=== PATIENT | female | born 1965 | race Caucasian/White ===

== ENCOUNTER 2016-08-05 17:45 | Observation (INO) | payer SELFPAY ==
[2016-08-05] MEDS ORDERED: IPRATROPIUM/ALBUTEROL 3 ML VIAL NEB ONE (18:03)
[2016-08-05] MEDS ORDERED: methylPREDNISolone SODIUM SUC 125 MG/2 ML VIAL IV ONE (18:09)
[2016-08-05] MEDS ORDERED: MONTELUKAST SODIUM 10 MG TAB PO ONE (18:10)
[2016-08-05] MEDS ORDERED: SODIUM CHL 0.9% 50ML VIAL 3 ML, ALBUTEROL SULFATE NEBS 15 MG NEB ONE ×2 (18:14)
[2016-08-05] MEDS ORDERED: IPRATROPIUM BROMIDE NEBS 0.5 MG/2.5 ML VIAL NEB ONE ×2 (18:15→18:17)
[2016-08-05] MEDS ORDERED: ALBUTEROL SULFATE 2.5 MG/3 ML VIAL NEB ONE (18:16)
--- NOTE | 2016-08-05 18:20 | ED.PDOC ---
History of Present Illness - General Source: patient, family Exam Limitations: no limitations - History of Present Illness Initial Comments: the patient is a 51-year-old female presenting to the emergency room secondary to progressive shortness of breath over the last 4 days. 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 She is having some chest discomfort with deep breathing now and is feeling a little bit of fatigue. The patient has wheezes and coarse rales that are heard across the emergency room. She does have a very long-standing history of significant asthma and does have frequent flares. She takes several medications at home and has done 3 breathing treatments today. She has felt dizzy a few times. She denies fevers. Earlier in the week she had a mild sore throat and runny nose. She does have a mild productive sputum. Timing/Duration: 1 week Severity: severe Improving Factors: nothing Worsening Factors: movement Associated Symptoms: cough, malaise, shortness of breath <Vlad Vega - Last Filed: 08/05/16 18:45> <Noemi Kat - Last Filed: 08/05/16 21:36> - General Chief Complaint: Respiratory Problem Stated Complaint: Shortness of breathe Time Seen by Provider: 08/05/16 18:08 - History of Present Illness Allergies/Adverse Reactions: Allergies NO KNOWN ALLERGY Allergy (Verified 02/19/14 11:11) Home Medications: Ambulatory Orders Albuterol Inhaler [Proventil Hfa Inhaler] 1 puff INH PRN PRN 02/19/14 Cyclobenzaprine HCl [Flexeril] 10 mg PO Q8HRS #15 tab 02/19/14 Fluticasone/Salmeterol 250/50 [Advair Diskus] 1 puff INH BID 02/19/14 Tramadol HCl [Ultram] 50 mg PO Q8HRS PRN #15 tab 02/19/14 Review of Systems - Review of Systems Constitutional: States: malaise EENTM: States: nose congestion, throat pain - earlier in the week Respiratory: States: cough, short of breath, wheezing Cardiology: States: no symptoms reported, chest pain - mainly with cough Gastrointestinal/Abdominal: States: no symptoms reported Genitourinary: States: no symptoms reported Musculoskeletal: States: no symptoms reported Skin: States: no symptoms reported Neurological: States: no symptoms reported Endocrine: States: no symptoms reported All other Systems: No Change from Baseline <Vlad Vega Dina - Last Filed: 08/05/16 18:45> Past Medical History (General) - Patient Medical History Hx Seizures: No Hx Stroke: No Hx Asthma: Yes - last episode a couple of weeks ago Hx of COPD: No Hx Congestive Heart Failure: No Hx Hypertension: No Hx Diabetes: No Hx MRSA: No - Vaccination History Hx Tetanus, Diphtheria Vaccination: Yes Hx Influenza Vaccination: No Hx Pneumococcal Vaccination: No Immunizations Up to Date: Yes - Social History Hx Tobacco Use: No - Female History Patient is a Female of Child Bearing Age (10 -59 yrs old): No Hx Last Menstrual Period: 01/15/14 Patient : No <Laura Vegadinorah Arroyo - Last Filed: 08/05/16 18:45> Family Medical History - Family History Father Living Status: Hx Family Cancer: Yes - colon <Laura Vegadinorah Arroyo - Last Filed: 08/05/16 18:45> Physical Exam - Physical Exam General Appearance: Alert, Anxious, Obvious distress Eye Exam: bilateral normal Ears, Nose, Throat: hearing grossly normal, nasal congestion Neck: full range of motion, supple Respiratory: chest non-tender, respiratory distress - moderate, decreased breath sounds - severe, rales - diffuse, rhonchi - diffuse, wheezing - diffuse Cardiovascular/Chest: normal peripheral pulses, no edema, tachycardia Peripheral Pulses: radial,right: 2+, radial,left: 2+, dorsalis pedis,right: 2+, dorsalis pedis,left: 2+ Gastrointestinal/Abdominal: soft Rectal Exam: deferred Back Exam: normal inspection, no CVA tenderness, no vertebral tenderness Extremity: normal range of motion, normal inspection, no pedal edema, normal capillary refill Neurologic: alert, oriented x 3 - she is anxious Skin Exam: normal color Comments: Vital Signs - 24 hr 08/05/16 18:06 Temperature 98.7 F Pulse Rate [ 84 Left Radial] Respiratory 22 Rate Blood Pressure 157/92 [Left Arm] O2 Sat by Pulse 97 Oximetry <Laura Vegadinorah Arroyo - Last Filed: 08/05/16 18:45> Progress - Progress Progress: 08/05/16 21:32 Patient has had a severe exacerbation previously which almost resulted in intubation. Therefore, because of her long-standing history of asthma, the severe exacerbations she has had in the past, and her inability to catch her breath, she will be admitted. - Results/Orders Results/Orders: 08/05/16 18:15 EKG STAT 08/05/16 20:16 Incentive Spirometry Routine 08/05/16 20:26 Peak Flow .ONCE Laboratory Results WBC 10.4 K/mm3 (4.8-10.8) 08/05/16 18: RBC 4.60 M/mm3 (4.20-5.40) 08/05/16 18:17 Hgb 13.9 gm/dL (12.0-16.0) 08/05/16 18:17 Hct 42.0 % (36.0-47.0) 08/05/16 18: MCV 91.2 fl (81.0-99.0) 08/05/16 18:17 MCH 30.2 pg (27.0-31.0) 08/05/16 18: MCHC 33.1 g/dL (33.0-37.0) 08/05/16 18:17 RDW 13.8 % (11.5-14.5) 08/05/16 18:17 Plt Count 344 K/mm3 (130-400) 08/05/16 18:17 MPV 6.6 fl (7.40-10.4) L 08/05/16 18:17 Absolute Neuts (auto) 8.70 K/uL (1.8-6.8) H 08/05/16 18:17 Absolute Lymphs (auto) 1.20 K/uL (1.0-3.4) 08/05/16 18:17 Absolute Monos (auto) 0.40 K/uL (0.2-0.8) 08/05/16 18:17 Absolute Eos (auto) 0.00 K/uL (0.0-0.4) 08/05/16 18:17 Absolute Basos (auto) 0.00 K/uL (0.0-0.1) 08/05/16 18:17 Neutrophils % 84.0 % (42.0-78.0) H 08/05/16 18:17 Lymphocytes % 12.0 % (20.0-50.0) L 08/05/16 18:17 Monocytes % 3.5 % (2.0-9.0) 08/05/16 18:17 Eosinophils % 0.1 % (1.0-5.0) L 08/05/16 18:17 Basophils % 0.4 % (0.0-2.0) 08/05/16 18:17 D-Dimer, Quantitative < 230 ng/mL (0-230) 08/05/16 18:17 Sodium 140 mmol/L (135-145) 08/05/16 18:17 Potassium 4.1 mmol/L (3.6-5.0) 08/05/16 18:17 Chloride 105 mmol/L (101-111) 08/05/16 18:17 Carbon Dioxide 25 mmol/L (21-31) 08/05/16 18:17 Anion Gap 14.1 (12-18) 08/05/16 18:17 BUN 18 mg/dL (7-18) 08/05/16 18:17 Creatinine 0.97 mg/dL (0.6-1.3) 08/05/16 18:17 BUN/Creatinine Ratio 18.6 (10-20) 08/05/16 18:17 Random Glucose 268 mg/dL (70-105) H 08/05/16 18:17 Serum Osmolality 290.7 mOsm/L (275-295) 08/05/16 18:17 Calcium 9.1 mg/dL (8.4-10.2) 08/05/16 18:17 Magnesium 2.1 mg/dL (1.8-2.5) 08/05/16 18:17 Total Bilirubin 0.5 mg/dL (0.2-1.0) 08/05/16 18:17 AST 40 IU/L (10-42) 08/05/16 18:17 ALT 27 IU/L (10-60) 08/05/16 18:17 Alkaline Phosphatase 59 IU/L (42-121) 08/05/16 18:17 Creatine Kinase 69 IU/L (26-140) 08/05/16 18:17 CK-MB (CK-2) 2.5 ng/mL (0.0-4.4) 08/05/16 18:17 CK-MB (CK-2) % Not Reportable 08/05/16 18:17 Troponin I < 0.02 ng/mL (0.01-0.05) 08/05/16 18:17 B-Natriuretic Peptide 22.6 pg/ml (0-100) 08/05/16 18:17 Serum Total Protein 7.3 gm/dL (6.4-8.2) 08/05/16 18:17 Albumin 3.7 g/dl (3.2-5.5) 08/05/16 18:17 Globulin 3.6 gm/dL (2.3-3.5) H 08/05/16 18:17 Albumin/Globulin Ratio 1.0 (1.1-1.9) L 08/05/16 18:17 08/05/16 08/05/16 08/05/16 18:06 19:29 19:38 Temperature 98.7 F Pulse Rate 90 115 H Pulse Rate [ 84 Left Radial] Respiratory 22 25 H 26 H Rate Blood Pressure 157/92 [Left Arm] O2 Sat by Pulse 97 96 100 Oximetry 08/05/16 08/05/16 20:10 20:23 Temperature Pulse Rate Pulse Rate [ 96 H 107 H Left Radial] Respiratory 20 22 Rate Blood Pressure 149/84 131/71 [Left Arm] O2 Sat by Pulse 96 97 Oximetry - EKG/XRAY/CT XRAY: chest Xray Comments: No acute process <Noemi Kat - Last Filed: 08/05/16 21:36> Departure <Vlad Vega - Last Filed: 08/05/16 18:45> - Departure Time of Disposition: 21:36 <Noemi Kat - Last Filed: 08/05/16 21:36> - Departure Clinical Impression: Asthma with exacerbation Qualifiers: Asthma severity: unspecified severity Qualifier Code: (J45.901) Unspecified asthma with (acute) exacerbation Disposition: Admit Patient Condition: Good Referrals: Kalia Sosa MD [Primary Care Provider] - 1-2 Weeks Home Medications: Ambulatory Orders Albuterol Inhaler [Proventil Hfa Inhaler] 1 puff INH PRN PRN 02/19/14 Cyclobenzaprine HCl [Flexeril] 10 mg PO Q8HRS #15 tab 02/19/14 Fluticasone/Salmeterol 250/50 [Advair Diskus] 1 puff INH BID 02/19/14 Tramadol HCl [Ultram] 50 mg PO Q8HRS PRN #15 tab 02/19/14 Decision To Admit - Decistion To Admit Decision to Admit Reason: Medical Nature Decision to Admit Date: 08/05/16 Decision to Admit Time: 21:00 <Noemi Kat - Last Filed: 08/05/16 21:36> Addendum entered and electronically signed by Vlad Vega MD 08/05/16 18:46 : Departure - Departure Disposition: Discharge to Home or Self Care Departure Forms: ED Discharge - Pt. Copy, Patient Portal Self Enrollment Home Medications: Ambulatory Orders Albuterol Inhaler [Proventil Hfa Inhaler] 1 puff INH PRN PRN 02/19/14 Cyclobenzaprine HCl [Flexeril] 10 mg PO Q8HRS #15 tab 02/19/14 Fluticasone/Salmeterol 250/50 [Advair Diskus] 1 puff INH BID 02/19/14 Tramadol HCl [Ultram] 50 mg PO Q8HRS PRN #15 tab 02/19/14 ED Addendum - ED Addendum Addendum: EKG shows normal sinus rhythm without acute ST segment changes concerning for ischemia. Normal axis. Mildly slow R-wave progression in anterior leads. The patient is being signed off to Dr. Kat for continuation of care.
--- NOTE | 2016-08-05 18:55 | RAD ---
EXAM: Chest,2 Views CLINICAL INDICATION: 51-year-old female with shortness of breath. TECHNIQUE: Two-view, PA and lateral projections of the chest were obtained. COMPARISON: None. FINDINGS: Unremarkable cardiac and mediastinal silhouette. Heart size is normal. Lungs are clear without focal opacity, pneumothorax or pleural effusions. The visualized bones are within normal limits. IMPRESSION: No acute cardiopulmonary abnormalities. Electronically signed by: Deisi Olson MD 08/05/2016 6:54 PM FLOOR TECH
[2016-08-05] MEDS ORDERED: DEXAMETHASONE INJ 2 MG, SODIUM CHLORIDE 0.9% NEB 3 ML NEB ONE ×2 (21:16)
[2016-08-05] MEDS ORDERED: LEVALBUTEROL NEBS 1.25 MG/3 ML VIAL NEB ONE (21:17)
[2016-08-05] MEDS ORDERED: MAGNESIUM SULFATE INJ 2 GM in SODIUM CHLORIDE 0.9% 100ML 100 ML IVPB ONE (21:30)
[2016-08-05] MEDS ORDERED: DEXAMETHASONE INJ 4 MG/ML VIAL ONE (21:35)
[2016-08-05] MEDS ORDERED: SODIUM CHLORIDE 0.9% NEB 3 ML VIAL ONE (21:35)
[2016-08-05] MEDS ORDERED: ACETAMINOPHEN 325 MG TAB PO PRN (22:42)
[2016-08-05] MEDS ORDERED: MAGNESIUM HYDROXIDE 30 ML UD PO PRN (22:42)
[2016-08-05] MEDS ORDERED: SODIUM CHLORIDE 0.9% (FLUSH) 10 ML SYG IV PRN (22:42)
[2016-08-05] MEDS ORDERED: LEVALBUTEROL NEBS 1.25 MG/3 ML VIAL INH PRN (22:42)
[2016-08-05] MEDS ORDERED: traMADol HCL 50 MG TAB PO PRN (22:48)
[2016-08-05] MEDS ORDERED: MAGNESIUM SULFATE PREMIX 2GM 50 ML IVPB ONE (22:54)
[2016-08-05] MEDS ORDERED: MAGNESIUM SULFATE PREMIX 2GM 2 GM in PREMIX BAG 1 BAG IVPB ONE (22:56)
[2016-08-05] MEDS ORDERED: AZITHROMYCIN 250 MG TAB PO SCH (23:00)
[2016-08-05] MEDS ORDERED: IV SET AND CAP CHANGE INJ INJ SCH (23:00)
[2016-08-06] MEDS ORDERED: DEXAMETHASONE INJ 4 MG/ML VIAL ONE (00:11)
[2016-08-06] MEDS ORDERED: SODIUM CHLORIDE 0.9% NEB 3 ML VIAL ONE (00:12)
[2016-08-06] MEDS ORDERED: LEVALBUTEROL NEBS 1.25 MG/3 ML VIAL INH ONE (01:00)
[2016-08-06] MEDS ORDERED: DEXAMETHASONE INJ 2 MG, SODIUM CHLORIDE 0.9% NEB 3 ML NEB ONE ×2 (01:00)
[2016-08-06] MEDS ORDERED: OMEPRAZOLE CAP 20 MG CAP PO SCH (06:30)
[2016-08-06] MEDS: IPRATROPIUM/ALBUTEROL 3 ML VIAL INH SCH ×2 (07:14→13:44)
[2016-08-06] MEDS ORDERED: GLUCAGON INJ 1 MG VIAL SUBCU PRN (07:17)
[2016-08-06] MEDS ORDERED: DEXTROSE 50% 25 GM/50 ML SYG IV PRN (07:17)
[2016-08-06] MEDS ORDERED: methylPREDNISolone SODIUM SUC 40 MG/ML VIAL IV SCH (09:00)
[2016-08-06] MEDS: SODIUM CHLORIDE 0.9% (FLUSH) 10 ML SYG IV SCH ×2 (09:59)
[2016-08-06 10:15] VITALS: BP 164/82; TEMP 98.1; O2SAT 97
[2016-08-06] MEDS ORDERED: INSULIN LISPRO 100 UNITS/ML PEN SUBCU SCH (11:30)
--- NOTE | 2016-08-06 13:35 | SSS ---
DISCHARGE DIAGNOSIS: 1. Chronic bronchial asthma with an acute exacerbation, probably aggravated by recent viral upper respiratory infection. 2. Hyperglycemia, probably secondary to the use of corticosteroid during her treatment course, showing improvement. 3. Significant tachypnea secondary to the underlying asthma. 4. Tachycardia. 5. Chronic low back post disc surgery of her lumbar spine. 6. History of allergies, especially to cats and other allergens which aggravate the breathing condition. HISTORY OF PRESENT ILLNESS: This 61-year-old, white female was admitted to the hospital via the Emergency Room because of significant worsening shortness of breath with associated wheezing. The wheezing was primarily on exhalation. No significant fever or chills are noted. She has been weak because of the significance. She has had a similar episode of shortness of breath in the past that almost required intubation and this has been a concern to her. She was seen in a local clinic a few days ago and started on Levaquin as well as prednisone and failed to improve. She therefore is admitted to the hospital for failure to improve on outpatient therapy. She uses albuterol at home. In the Emergency Room, her chest was okay. She has been on Advair in the past. She was given Solu-Medrol and started on some antibiotics. Glucose was a little elevated and was even higher after significant Solu-Medrol administration had been completed. PAST MEDICAL HISTORY: 1. Chronic allergies. 2. Asthma. PAST SURGICAL HISTORY: 1. Ulnar release at the elbow. 2. Lumbar disc low back surgery at [place]. CURRENT MEDICATIONS: Please refer to nursing notes for a list of verified medications. ALLERGIES: NONE. FAMILY HISTORY: Positive for coronary artery disease, diabetes, and colon cancer. 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 REVIEW OF SYSTEMS: GENERAL: No significant weight change. HEENT: Unremarkable. LUNGS: Some shortness of breath especially upon exertion with some expiratory wheezing noted. CARDIOVASCULAR: Heart tones somewhat rapid. Pulse rate noted. No significant chest pains. GASTROINTESTINAL: No nausea or vomiting. No diarrhea. No blood in the stools. GENITOURINARY: No dysuria. EXTREMITIES: No significant edema. NEUROLOGIC: No significant headaches or focal weakness noted. PHYSICAL EXAMINATION: VITAL SIGNS: Afebrile. Pulse 77. Blood pressure 153/78. Pulse oximetry 95% on room air. Weight 117.5 kg. GENERAL: The patient is awake, alert and oriented. She is somewhat anxious. She has noticeable expiratory wheezing. Coloration is fairly good. Pulse oximetry is satisfactory with no significant hypoxia at this time, nor on ambulation studies when her saturation stays fairly stable. HEENT: Unremarkable. NECK: Supple. LUNGS: Significant rhonchi and some slight wheezing on exhalation with most of it being upper airway in the supraglottic region, suggestion some edema in the supraglottic region. No significant hoarseness is noted. No significant barking cough is noted. CARDIOVASCULAR: Heart tones are regular. ABDOMEN: Soft with no organomegaly, masses or tenderness. EXTREMITIES: Fairly well-formed with no edema. NEUROLOGIC: No focal neurological deficits are noted. The patient awake, alert , oriented and communicative. LABORATORY: White count 10,400, hemoglobin 13.9. D-dimer is under 230. Chemistries show potassium 4.1, BUN 17, creatinine 0.88, glucose 221 on sliding scale. Osmolality normal at 295. Magnesium 2.1. Liver enzymes normal. Troponin 0. Beta natriuretic peptide 23. Albumin 3.6. Urinalysis shows some hematuria, ketonuria and glycosuria. Nasal culture for influenza A/B is negative. Chest x-ray was unremarkable for infiltrative processes. HOSPITAL COURSE: The patient was feeling much improved at the time of discharge. She was ready to continue with outpatient followup in the local clinic. Discharge plan is discussed with the patient and her . DISCHARGE PLAN: Close followup with [facility] is encouraged within the next week. She can followup with Dr. Sosa if at all possible as well. She will continue with the albuterol four times a day as needed. Continue with azithromycin 250 mg daily, #5 given. Continue other medicines. 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 Try prednisone only 10 mg a day for the next 3 days, then decrease to 5 mg daily for the following 4 days, then stop saving extra pills for the future. Avoid allergic exposure like with cats. Return if not improving. Close followup is important. #[id number] [facility]
== END 2016-08-06 14:45 | disposition home or self-care (01) ==
LOC: ER 17:45 → MS 21:45
PROVIDERS: ADMIT Emergency Medicine; ATTEND Emergency Medicine
DX: J45.901 Unspecified asthma with (acute) exacerbation (principal); R73.9 Hyperglycemia, unspecified; R06.82 Tachypnea, not elsewhere classified; R00.0 Tachycardia, unspecified; G89.29 Other chronic pain; M54.5 Low back pain; J30.81 Allergic rhinitis due to animal (cat) (dog) hair and dander; Z79.51 Long term (current) use of inhaled steroids; Z79.899 Other long term (current) drug therapy; Z82.49 Family history of ischemic heart disease and other diseases of the circulatory system; Z83.3 Family history of diabetes mellitus; Z80.0 Family history of malignant neoplasm of digestive organs

== ENCOUNTER 2017-03-10 10:16 | Emergency (ER) | payer OTHER ==
[2017-03-10] MEDS ORDERED: IPRATROPIUM BROMIDE NEBS 0.5 MG/2.5 ML VIAL NEB ONE (10:20)
[2017-03-10] MEDS ORDERED: IPRATROPIUM/ALBUTEROL 3 ML VIAL NEB ONE ×2 (10:21→12:07)
--- NOTE | 2017-03-10 10:24 | ED.PDOC ---
History of Present Illness - General Chief Complaint: Asthma Stated Complaint: wheezing Time Seen by Provider: 03/10/17 10:20 Source: patient Exam Limitations: no limitations - History of Present Illness Initial Comments: Kassidy Chavarria 51 y/o female stated that with long standing history of asthma stated that she had been having worsening cough and wheezing the last 5 days using more her mdi and nebulizer No fever ,no nausea vomiting. Timing/Duration: getting worse, other - 5 days Activities at Onset: none Possible Cause: occasional episodes Improving Factors: nothing Worsening Factors: nothing Associated Symptoms: cough, wheezing Respiratory Risk Factors: exposure to allergen Allergies/Adverse Reactions: Allergies NO KNOWN ALLERGY Allergy (Verified 02/19/14 11:11) Home Medications: Ambulatory Orders Albuterol Inhaler [Ventolin Hfa Inhaler] 1 puff INH PRN PRN 02/19/14 Fluticasone/Salmeterol 250/50 [Advair 250/50 Diskus] 1 puff INH DAILY 02/19/14 Albuterol Sulfate Nebs [Proventil Nebs] 2.5 mg INH QID #100 vial 08/06/16 Azithromycin [Zithromax Z-Rudy] 1 ea PO DAILY #1 pack 03/10/17 predniSONE 20 mg PO BID #14 tab 03/10/17 Review of Systems - Review of Systems Constitutional: States: no symptoms reported EENTM: States: no symptoms reported Respiratory: States: see HPI Cardiology: States: no symptoms reported Gastrointestinal/Abdominal: States: no symptoms reported Genitourinary: States: no symptoms reported Past Medical History (General) - Patient Medical History Hx Seizures: No Hx Stroke: No Hx Asthma: Yes - last episode a couple of weeks ago Hx of COPD: No Hx Congestive Heart Failure: No Hx Pacemaker: No Hx Hypertension: No Hx Diabetes: No Hx MRSA: No Surgical History: other - low back,ulnar nerve transposition - Vaccination History Hx Tetanus, Diphtheria Vaccination: Yes Hx Influenza Vaccination: No Hx Pneumococcal Vaccination: No - Social History Hx Tobacco Use: No Hx Alcohol Use: No Hx Substance Use: No Hx Physical Abuse: No Hx Emotional Abuse: No - Activities of Daily Living Patient Lives Alone: No - Female History Hx Last Menstrual Period: 02/28/17 Patient : No Family Medical History - Family History Father Living Status: Hx Family Asthma: Yes - brother Hx Family Hypertension: Yes - mom Hx Family Diabetes: Yes - mom Hx Family Cancer: Yes - colon-dad Physical Exam - Physical Exam General Appearance: Alert, No apparent distress Eyes, Ears, Nose, Throat Exam: PERRL/EOMI, normal ENT inspection, pharynx normal Neck: non-tender, full range of motion Respiratory: chest non-tender, no respiratory distress, wheezing, other - speaks in full sentences Cardiovascular/Chest: normal peripheral pulses, regular rate, rhythm Peripheral Pulses: radial,right: 2+, radial,left: 2+ Gastrointestinal/Abdominal: normal bowel sounds, non tender, soft Extremity: non-tender, no pedal edema, no calf tenderness Neurologic: alert, normal mood/affect, oriented x 3 Skin Exam: normal color, warm/dry Progress - Progress Progress: 03/10/17 12:04 Vital Signs - 8 hr 03/10/17 03/10/17 03/10/17 10:24 10:25 11:02 Temperature 97.8 F Pulse Rate 75 Pulse Rate [ 74 Right Brachial] Respiratory 18 20 24 Rate Blood Pressure 140/82 [Right Arm] O2 Sat by Pulse 95 94 L Oximetry - Results/Orders Results/Orders: Laboratory Tests 03/10/17 10:47 WBC 9.6 RBC 4.46 Hgb 13.6 Hct 40.5 MCV 90.8 MCH 30.4 MCHC 33.5 RDW 14.3 Plt Count 324 MPV 7.1 L Absolute Neuts (auto) 7.10 H Absolute Lymphs (auto) 1.40 Absolute Monos (auto) 0.50 Absolute Eos (auto) 0.50 H Absolute Basos (auto) 0.10 Neutrophils % 74.2 Lymphocytes % 14.8 L Monocytes % 5.1 Eosinophils % 5.2 H Basophils % 0.7 - EKG/XRAY/CT XRAY: chest - no acute abnormality Departure - Departure Clinical Impression: Asthma exacerbation attacks Qualifiers: Asthma severity: mild intermittent Qualified Code(s): J45.21 - Mild intermittent asthma with (acute) exacerbation Time of Disposition: 13:50 Disposition: Discharge to Home or Self Care Condition: Fair Departure Forms: ED Discharge - Pt. Copy, Patient Portal Self Enrollment Instructions: Asthma -- Adult, Tips for Controlling Your Asthma, DI for Asthma -- Adult Referrals: Kalia Sosa MD [Primary Care Provider] - 1-2 Weeks Prescriptions: Azithromycin [Zithromax Z-Rudy] 1 ea PO DAILY #1 pack predniSONE 20 mg PO BID #14 tab Home Medications: Ambulatory Orders Albuterol Inhaler [Ventolin Hfa Inhaler] 1 puff INH PRN PRN 02/19/14 Fluticasone/Salmeterol 250/50 [Advair 250/50 Diskus] 1 puff INH DAILY 02/19/14 Albuterol Sulfate Nebs [Proventil Nebs] 2.5 mg INH QID #100 vial 08/06/16 Azithromycin [Zithromax Z-Rudy] 1 ea PO DAILY #1 pack 03/10/17 predniSONE 20 mg PO BID #14 tab 03/10/17 Additional Instructions: Return to emergency room as needed;Follow up with primary md 03/13/2017 call foer appointment as needed
[2017-03-10] MEDS ORDERED: methylPREDNISolone SODIUM SUC 125 MG/2 ML VIAL IV ONE (10:28)
[2017-03-10 10:29] VITALS: TEMP 97.8
[2017-03-10] MEDS ORDERED: SODIUM CHLORIDE 0.9% 1000ML 1,000 ML IVS ONE (10:29)
--- NOTE | 2017-03-10 12:00 | RAD ---
EXAM DESCRIPTION: Chest,2 Views CLINICAL HISTORY: sob COMPARISON: August 05, 2016 TECHNIQUE: PA/lateral FINDINGS: There is no cardiac or pulmonary abnormality. The lungs are clear. There is no effusion. IMPRESSION: 1. Normal two-view chest. Electronically signed by: Prasanna Prieto MD 03/10/2017 11:59 AM CDT
[2017-03-10] MEDS ORDERED: LEVALBUTEROL NEBS 1.25 MG/3 ML VIAL NEB ONE ×2 (12:07)
[2017-03-10 12:17] VITALS: O2SAT 94
[2017-03-10 13:40] VITALS: BP 146/80
== END 2017-03-10 14:06 | disposition home or self-care (01) ==
LOC: ER 10:16
DX: J45.21 Mild intermittent asthma with (acute) exacerbation (principal); Z79.899 Other long term (current) drug therapy
CPT/HCPCS: 36415; 71020; 85025; 94640; J2930; J7030; J7614; J7620

== ENCOUNTER 2017-05-28 10:10 | Emergency (ER) | payer OTHER ==
--- NOTE | 2017-05-28 10:16 | ED.PDOC ---
History of Present Illness - General Chief Complaint: Respiratory Problem Stated Complaint: wheezing;cough Time Seen by Provider: 05/28/17 10:15 Source: patient Exam Limitations: no limitations - History of Present Illness Comments: Kassidy Chavarria 51 y/o female with history of long standing bronchial asthma stated that she had a cold /cough 4 days ago and last night started wheezing;no fever/chills ,chest pains.Had been using B-agonist inhale but wheezing not better Timing/Duration: yesterday Cough Quality/Degree: mild Possible Cause: occasional episodes, allergen exposure, other - asthma Improving Factors: nothing Worsening Factors: nothing Associated Symptoms: wheezing Respiratory Risk Factors: exposure to allergen Allergies/Adverse Reactions: Allergies NO KNOWN ALLERGY Allergy (Verified 02/19/14 11:11) Home Medications: Ambulatory Orders RX: Albuterol Inhaler [Ventolin Hfa Inhaler] 1 puff INH PRN PRN 02/19/14 RX: Fluticasone/Salmeterol 250/50 [Advair 250/50 Diskus] 1 puff INH DAILY RX: Albuterol Sulfate Nebs [Proventil Nebs] 2.5 mg INH QID #100 vial 08/06/16 Azithromycin [Zithromax Z-Rudy] 1 ea PO DAILY #1 pack 03/10/17 RX: predniSONE 20 mg PO BID #14 tab 03/10/17 RX: predniSONE 30 mg PO DAILY #21 tab 05/28/17 Review of Systems - Review of Systems Constitutional: States: no symptoms reported EENTM: States: see HPI, nose congestion Respiratory: States: see HPI Cardiology: States: no symptoms reported Gastrointestinal/Abdominal: States: no symptoms reported Genitourinary: States: no symptoms reported Musculoskeletal: States: no symptoms reported All other Systems: Reviewed and Negative, No Change from Baseline Past Medical History (General) - Patient Medical History Hx Seizures: No Hx Stroke: No Hx Asthma: Yes - last episode a couple of weeks ago Hx of COPD: No Hx Congestive Heart Failure: No Hx Pacemaker: No Hx Hypertension: No Hx Diabetes: No Hx MRSA: No Surgical History: other - ulnar nerve transposition,low back - Vaccination History Hx Tetanus, Diphtheria Vaccination: Yes Hx Influenza Vaccination: No Hx Pneumococcal Vaccination: No - Social History Hx Tobacco Use: No Hx Alcohol Use: No Hx Substance Use: No Hx Physical Abuse: No Hx Emotional Abuse: No - Female History Hx Last Menstrual Period: 02/28/17 Patient : No Family Medical History - Family History Father Living Status: Hx Family Asthma: Yes - brother Hx Family Hypertension: Yes - mom Hx Family Diabetes: Yes - mom Hx Family Cancer: Yes - colon-dad Physical Exam - Physical Exam General Appearance: Alert, Comfortable, No apparent distress Eye Exam: bilateral normal ENT Exam: normal ENT inspection, hearing grossly normal, pharynx normal, nasal congestion, nasal drainage Neck: non-tender, full range of motion, supple Respiratory: no respiratory distress, wheezing, other - speaks in full sentences Cardiovascular/Chest: normal peripheral pulses, regular rate, rhythm, no gallop , no murmur Gastrointestinal/Abdominal: normal bowel sounds, non tender, soft Neurologic: alert, normal mood/affect, oriented x 3 Skin Exam: normal color, warm/dry Lymphatic: no adenopathy Progress - Progress Progress: 05/28/17 10:56 Last Vital Signs Temp 99.1 F 05/28/17 10:10 Pulse 89 05/28/17 10:32 Resp 22 05/28/17 10:32 BP 105/59 05/28/17 10:10 Pulse Ox 98 05/28/17 10:32 - Results/Orders Results/Orders: Laboratory Tests 05/28/17 10:23 WBC 10.1 RBC 4.58 Hgb 13.8 Hct 41.5 MCV 90.8 MCH 30.2 MCHC 33.2 RDW 14.3 Plt Count 306 MPV 6.9 L Absolute Neuts (auto) 8.10 H Absolute Lymphs (auto) 1.00 Absolute Monos (auto) 0.60 Absolute Eos (auto) 0.30 Absolute Basos (auto) 0.00 Neutrophils % 80.2 H Lymphocytes % 10.3 L Monocytes % 6.3 Eosinophils % 2.8 Basophils % 0.4 - EKG/XRAY/CT XRAY: chest - no acute abnormalities Departure - Departure Clinical Impression: Asthma Qualifiers: Asthma severity: unspecified severity Asthma complication type: uncomplicated Qualified Code(s): J45.909 - Unspecified asthma, uncomplicated Time of Disposition: 11:18 Disposition: Discharge to Home or Self Care Departure Forms: ED Discharge - Pt. Copy, Patient Portal Self Enrollment Instructions: DI for Asthma -- Adult Referrals: Kalia Sosa MD [Primary Care Provider] - 1-2 Weeks Prescriptions: RX: predniSONE 30 mg PO DAILY #21 tab Home Medications: Ambulatory Orders RX: Albuterol Inhaler [Ventolin Hfa Inhaler] 1 puff INH PRN PRN 02/19/14 RX: Fluticasone/Salmeterol 250/50 [Advair 250/50 Diskus] 1 puff INH DAILY RX: Albuterol Sulfate Nebs [Proventil Nebs] 2.5 mg INH QID #100 vial 08/06/16 Azithromycin [Zithromax Z-Rudy] 1 ea PO DAILY #1 pack 03/10/17 RX: predniSONE 20 mg PO BID #14 tab 03/10/17 RX: predniSONE 30 mg PO DAILY #21 tab 05/28/17 Additional Instructions: Nasal Saline spray 5 sprays each nostril irrigate nose as needed for congestion
[2017-05-28] MEDS ORDERED: IPRATROPIUM/ALBUTEROL 3 ML VIAL NEB ONE (10:23)
[2017-05-28] MEDS ORDERED: methylPREDNISolone SODIUM SUC 125 MG/2 ML VIAL IV ONE (10:25)
[2017-05-28 10:27] VITALS: BP 105/59
--- NOTE | 2017-05-28 10:54 | RAD ---
EXAM DESCRIPTION: Chest,2 Views CLINICAL HISTORY: cough COMPARISON: March 10, 2017 Findings/impression: Frontal and lateral views of the chest. Cardiac silhouette and pulmonary vascularity are within normal limits. Subtle linear opacity in the left lung base, most likely representing linear atelectasis. Otherwise, lungs are clear without focal consolidative infiltrates. No pleural effusion. No pneumothorax. No acute osseous abnormality. Electronically signed by: Mars Rueda MD 05/28/2017 10:52 AM [facility]
[2017-05-28] MEDS ORDERED: LEVALBUTEROL NEBS 1.25 MG/3 ML VIAL NEB ONE (11:01)
[2017-05-28 11:25] VITALS: O2SAT 99
[2017-05-28 11:35] VITALS: TEMP 99.9
== END 2017-05-28 11:29 | disposition home or self-care (01) ==
LOC: ER 10:10
DX: J45.909 Unspecified asthma, uncomplicated (principal)
CPT/HCPCS: 71020; 85025; 94640; J2930; J7614; J7620

== ENCOUNTER 2017-05-29 15:11 | Inpatient (IN) | payer OTHER ==
[2017-05-29] MEDS ORDERED: predniSONE 20 MG TAB PO ONE (15:17)
[2017-05-29] MEDS ORDERED: SODIUM CHL 0.9% 50ML VIAL 3 ML, ALBUTEROL SULFATE NEBS 15 MG NEB ONE ×2 (15:17)
[2017-05-29] MEDS ORDERED: ALBUTEROL SULFATE 2.5 MG/3 ML VIAL NEB ONE (15:23)
--- NOTE | 2017-05-29 16:03 | ED.PDOC ---
History of Present Illness - General Chief Complaint: Asthma Stated Complaint: difficulty breathing Time Seen by Provider: 05/29/17 15:17 Source: patient, RN notes reviewed, Vital Signs reviewed, family Additional Information: Patient seen yesterday for asthma exacerbation. Discharged with Z-Rudy, Prednisone, and Albuterol. No improvement. Pt reports Dyspnea on exertion. - History of Present Illness Timing/Duration: 24 hours Severity: moderate Activities at Onset: none Possible Cause: frequent episodes Improving Factors: nothing Worsening Factors: nothing Associated Symptoms: cough Respiratory Risk Factors: no cause identified Allergies/Adverse Reactions: Allergies NO KNOWN ALLERGY Allergy (Verified 05/29/17 15:49) Home Medications: Ambulatory Orders Albuterol Inhaler [Ventolin Hfa Inhaler] 1 puff INH PRN PRN 02/19/14 Fluticasone/Salmeterol 250/50 [Advair 250/50 Diskus] 1 puff INH DAILY 02/19/14 Albuterol Sulfate Nebs [Proventil Nebs] 2.5 mg INH QID #100 vial 08/06/16 Azithromycin [Zithromax Z-Rudy] 1 ea PO DAILY #1 pack 03/10/17 predniSONE 20 mg PO BID #14 tab 03/10/17 predniSONE 30 mg PO DAILY #21 tab 05/28/17 Review of Systems - Review of Systems Constitutional: States: no symptoms reported EENTM: States: no symptoms reported Respiratory: States: see HPI, short of breath, wheezing Cardiology: States: no symptoms reported Gastrointestinal/Abdominal: States: no symptoms reported Genitourinary: States: no symptoms reported Musculoskeletal: States: no symptoms reported Skin: States: no symptoms reported Neurological: States: no symptoms reported Endocrine: States: no symptoms reported Hematologic/Lymphatic: States: no symptoms reported Past Medical History (General) - Patient Medical History Hx Seizures: No Hx Stroke: No Hx Asthma: Yes - last episode a couple of weeks ago Hx of COPD: No Hx Congestive Heart Failure: No Hx Pacemaker: No Hx Hypertension: No Hx Diabetes: No Hx MRSA: No Surgical History: other - Vaccination History Hx Tetanus, Diphtheria Vaccination: Yes Hx Influenza Vaccination: No Hx Pneumococcal Vaccination: No - Social History Hx Tobacco Use: No Hx Alcohol Use: No Hx Substance Use: No Hx Physical Abuse: No Hx Emotional Abuse: No - Female History Hx Last Menstrual Period: 02/28/17 Patient : No Family Medical History - Family History Father Living Status: Hx Family Asthma: Yes - brother Hx Family Hypertension: Yes - mom Hx Family Diabetes: Yes - mom Hx Family Cancer: Yes - colon-dad Physical Exam - Physical Exam General Appearance: Alert, Ill Appearing, Obese Eyes, Ears, Nose, Throat Exam: PERRL/EOMI Neck: non-tender, full range of motion, supple Respiratory: accessory muscle use - mild, wheezing - diffuse Cardiovascular/Chest: regular rate, rhythm, no edema Gastrointestinal/Abdominal: non tender, soft Extremity: normal range of motion, non-tender, normal inspection 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 Pt stable for admission for ongoing RT and evaluation/management. Departure - Departure Clinical Impression: Asthma with exacerbation Qualifiers: Asthma severity: moderate persistent Qualified Code(s): J45.41 - Moderate persistent asthma with (acute) exacerbation Time of Disposition: 16:55 Disposition: Admit Patient Condition: Fair Departure Forms: ED Discharge - Pt. Copy, Patient Portal Self Enrollment Instructions: DI for Asthma -- Adult Referrals: Kalia Sosa MD [Primary Care Provider] - 1-2 Weeks Home Medications: Ambulatory Orders Albuterol Inhaler [Ventolin Hfa Inhaler] 1 puff INH PRN PRN 02/19/14 Fluticasone/Salmeterol 250/50 [Advair 250/50 Diskus] 1 puff INH DAILY 02/19/14 Albuterol Sulfate Nebs [Proventil Nebs] 2.5 mg INH QID #100 vial 08/06/16 Azithromycin [Zithromax Z-Rudy] 1 ea PO DAILY #1 pack 03/10/17 predniSONE 20 mg PO BID #14 tab 03/10/17 predniSONE 30 mg PO DAILY #21 tab 05/28/17 Decision To Admit - Decistion To Admit Decision to Admit Reason: Medical Nature Decision to Admit Date: 05/29/17 Decision to Admit Time: 16:03
--- NOTE | 2017-05-29 16:57 | HP ---
SUPERVISING PHYSICIAN: See Grover MD CHIEF COMPLAINT: Shortness of breath. HISTORY OF PRESENT ILLNESS: Ms. Chavarria is a 51-year-old, female patient that presented to the Emergency Room today complaining of worsening shortness of breath. She was seen yesterday for an asthma exacerbation and given a Z-Rudy, prednisone and albuterol. She had no significant improvement and presented with severe dyspnea on exertion. Laboratory studies showed leukocytosis of 20,000 with a left shift. Chemistries showed a lactic acid elevated at 5.4. Radiographic studies per radiologic interpretation showed no evidence of acute cardiopulmonary disease. Her initial vital signs showed she is afebrile and having some mild respiratory distress with respirations 22 although she was satting 97% on room air at rest. On examination, she had diffuse wheezing throughout. She was initially given a continuous DuoNeb treatment with minimal response. This was followed up in the Emergency Room by Dr. Mccurdy with p.o. prednisone after which time Dr. Mccurdy requested the patient be admitted for further treatment and evaluation. Of note was a flu swab completed after she was admitted showed that she had a positive influenza A infection. She was admitted in stable condition. PAST MEDICAL HISTORY: 1. Chronic allergies. 2. Asthma. PAST SURGICAL HISTORY: 1. Ulnar nerve release at the elbow. 3. Lumbar disc back surgery. CURRENT MEDICATIONS: Chronic medications include Advair. Recent acute medications include Z-Rudy, prednisone and albuterol inhaler. She also notes she uses her nebulizer at home as needed with albuterol. ALLERGIES: NO KNOWN DRUG ALLERGIES. FAMILY HISTORY: Positive for coronary artery disease, diabetes, colon cancer. SOCIAL HISTORY: The patient lives in [place]. She is . 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 She denies any tobacco or alcohol use or illicit drug use. REVIEW OF SYSTEMS: CONSTITUTIONAL: Noted fever, chills, general malaise. HEENT: Nasal congestion, no sore throat, headaches. RESPIRATORY: As noted in history of present illness, severe shortness of breath with diffuse wheezing. CARDIOVASCULAR: No reported syncopal episodes, chest pain or palpitations. GASTROINTESTINAL: Denies abdominal pain, diarrhea or constipation. GENITOURINARY: Denies dysuria, hematuria or other urinary symptoms. NEUROLOGIC: No reported changes in vision, headaches, syncopal episodes or near syncopal episodes or other neuro deficits. PHYSICAL EXAMINATION: VITAL SIGNS: Temperature 97.6, pulse 77, blood pressure 180/76, respirations 20, saturation 97% on room air. Initial weight 78.0 kg. GENERAL: Patient appears to be anxious in mild distress, wll hydrated, obese and alert x 3 HEENT: Tympanic membranes are clear bilaterally. Oropharynx is pink and moist without any lesions. NECK: Supple, non-tender with full range of motion. No jugular venous distention. CHEST: Lung sounds severely diminished in all lung emery with inspiratory and expiatory wheezing HEART: Regular rate and rhythm without any appreciable murmurs, rubs, or gallops. ABDOMEN: Soft but obese with positive bowel sounds. EXTREMITIES: No edema, cyanosis or clubbing NEUROLOGIC: She is alert and oriented x 3. Facial features are symmetrical. Extraocular movement was negative. There was no notable nystagmus. Cranial nerves II through XII are grossly intact LABORATORY: CBC shows leukocytosis of 20,000 with hemoglobin 13.5, hematocrit 41.4, platelet count 291,000, differential shows a left shift with increased bands at 12. Chemistries showed lactic acid elevated at 5.4. Electrolytes showed a normal potassium and sodium, but carbon dioxide was low at 15. Anion gap elevated at 22.5, BUN 13, creatinine 0.8, glucose 297. Liver functions all within normal limits. Serum ketones negative. MICROBIOLOGY: Sputum culture pending. Blood culture pending. Influenza A by PCR was positive for A, negative for B. RADIOLOGY: Chest x-ray, two view, per radiologic interpretation showed no acute cardiopulmonary disease. ASSESSMENT: 1. Chronic bronchial asthma with an acute exacerbation having failed to respond to outpatient treatment plan with trigger likely from influenza A infection with the patient having a leukocytosis, left shift and elevated lactic acid, concerning for an early sepsis process although the patient is hemodynamically stable. 2. Hyperglycemia with elevated hemoglobin A1c, but no history of being diabetic. 3. Metabolic acidosis as noted with an elevated anion gap secondary to increased lactic acid, likely from ongoing infectious process. 4. Chronic back pain with previous surgery to lumbar region. 5. History of seasonal allergies. PLAN: The patient will be admitted to the hospital for ongoing treatment and further evaluation and close monitoring. Given that she has a metabolic acidosis, we will start her on some IV fluids to include half normal saline with 20 of potassium to run at 125 after initial saline bolus of a liter. After which, we will plan to repeat her lactic acid at 4 to 6 hours. She will be on DuoNeb breathing treatments, aggressive bronchial hygiene. I will plan to give her 2 grams of magnesium to help in efforts to relieve her dyspnea. I have also given her a Decadron nebulizer treatment. For underlying infection for the influenza A, she has been started on Tamiflu and for possible underlying bacterial infection, she will be started on Rocephin and azithromycin. We will await sputum culture to further target antibiotic therapy. She will be on a sliding scale as per protocol. We will anticipate length of stay to be 2 to 3 days. Until then, we will continue to monitor the patient closely and treat appropriately. Dr. Mcdonnell was available for consultation. #[id number] [facility]
[2017-05-29] MEDS ORDERED: ACETAMINOPHEN 325 MG TAB PO PRN (17:48)
[2017-05-29] MEDS ORDERED: OSELTAMIVIR 75 MG CAP PO ONE (17:58)
[2017-05-29] MEDS ORDERED: AZITHROMYCIN IV 500 MG in SODIUM CHLORIDE 0.9% 250ML 250 ML IVPB SCH (18:00)
[2017-05-29] MEDS ORDERED: cefTRIAXone SODIUM 1 GM in SODIUM CHL 0.9% 50ML MIN-BAG+ 50 ML IVPB SCH (18:00)
[2017-05-29] MEDS: IV SET AND CAP CHANGE INJ INJ SCH (18:12)
[2017-05-29] MEDS ORDERED: SODIUM CHLORIDE 0.9% 250ML 250 ML ONE (18:25)
[2017-05-29] MEDS ORDERED: cefTRIAXone SODIUM 1 GM VIAL ONE (18:25)
[2017-05-29] MEDS ORDERED: AZITHROMYCIN IV 500 MG VIAL IVPB ONE (18:25)
[2017-05-29] MEDS ORDERED: SODIUM CHL 0.9% 50ML MIN-BAG+ 50 ML IVPB ONE (18:25)
--- NOTE | 2017-05-29 18:26 | RAD ---
EXAM DESCRIPTION: Chest,2 Views CLINICAL HISTORY: Asthma exacerbation COMPARISON: 05/28/2017 FINDINGS: Single view of the chest is submitted. Cardiac silhouette is normal. No focal parenchymal or pleural disease. No acute bony abnormality. There is no significant pulmonary vascular engorgement. IMPRESSION: No evidence of acute cardiopulmonary disease. Electronically signed by: Barrett Madrigal 05/29/2017 6:25 PM SOLUTION ANALYST
[2017-05-29] MEDS ORDERED: DEXAMETHASONE INJ 2 MG, SODIUM CHLORIDE 0.9% NEB 3 ML NEB ONE ×2 (18:39)
[2017-05-29] MEDS: methylPREDNISolone SODIUM SUC 125 MG/2 ML VIAL IV SCH (18:40)
[2017-05-29] MEDS ORDERED: MAGNESIUM SULFATE PREMIX 2GM 2 GM in PREMIX BAG 1 BAG IVPB ONE (18:40)
[2017-05-29] MEDS ORDERED: DEXAMETHASONE INJ 4 MG/ML VIAL ONE (18:47)
[2017-05-29] MEDS ORDERED: MAGNESIUM SULFATE PREMIX 2GM 50 ML IVPB ONE (19:33)
[2017-05-29] MEDS: KCL 20 MEQ/NS 1,000 ML IVS PRN (20:21)
[2017-05-29] MEDS: IPRATROPIUM/ALBUTEROL 3 ML VIAL INH SCH (20:50)
[2017-05-29] MEDS ORDERED: DEXTROSE 50% 25 GM/50 ML SYG IV PRN (21:06)
[2017-05-29] MEDS ORDERED: GLUCAGON INJ 1 MG VIAL SUBCU PRN (21:06)
--- NOTE | 2017-05-29 21:58 | PCM.CORE ---
Physician DVT/VTE - Nurse DVT Assessment & Total Each Risk Factor Represents 1 Point: Age 41-60 Each Risk Factor is 1 Point: Obesity (BMI >25), Serious Lung disease (pnemonia < 1month, COPD, emphysema,etc) DVT Assessment Score: 3 - 3-4 High Risk Treatments: Early Ambulation *, Sequential Compression Device Pharmacological: Enoxaparin 40 mg SQ Daily
[2017-05-29] MEDS ORDERED: diphenhydrAMINE HCL 25 MG CAP PO ONE (21:59)
[2017-05-29] MEDS ORDERED: ENOXAPARIN SODIUM 40 MG/0.4 ML SYG SUBCU SCH (22:00)
[2017-05-29] MEDS ORDERED: SODIUM CHLORIDE 0.9% 1000ML 1,000 ML IVS ONE (23:06)
[2017-05-30] MEDS: methylPREDNISolone SODIUM SUC 125 MG/2 ML VIAL IV SCH ×4 (00:27→17:14)
[2017-05-30] MEDS: ALBUTEROL SULFATE 2.5 MG/3 ML VIAL NEB PRN (01:05)
[2017-05-30] MEDS: KCL 20 MEQ/NS 1,000 ML IVS PRN ×2 (06:52→22:11)
[2017-05-30] MEDS: SODIUM CHLORIDE 0.9% (FLUSH) 10 ML SYG IV PRN (06:53)
--- NOTE | 2017-05-30 07:15 | RAD ---
EXAM DESCRIPTION: Chest,2 Views CLINICAL HISTORY: Asthma exacerbation COMPARISON: 05/29/2017 FINDINGS: Frontal and lateral views of the chest. The cardiomediastinal silhouette has normal size and contour. No consolidation, pneumothorax, or pleural effusion. No displaced rib fractures identified. Upper abdominal soft tissues are unremarkable. IMPRESSION: 1. No acute pulmonary process identified. Electronically signed by: Samuel Arriola 05/30/2017 7:14 AM [facility]
[2017-05-30] MEDS: IPRATROPIUM/ALBUTEROL 3 ML VIAL INH SCH ×4 (07:53→20:45)
[2017-05-30] MEDS: INSULIN LISPRO 100 UNITS/ML PEN SUBCU SCH ×5 (08:14→21:23)
[2017-05-30] MEDS: OSELTAMIVIR 75 MG CAP PO SCH ×2 (11:56→21:22)
[2017-05-30] MEDS ORDERED: SODIUM CHLORIDE 0.9% 1000ML 1,000 ML IVS ONE ×3 (15:00→19:45)
[2017-05-30] MEDS ORDERED: cefTRIAXone SODIUM 1 GM VIAL ONE (15:01)
[2017-05-30] MEDS ORDERED: AZITHROMYCIN 250 MG TAB PO ONE (15:01)
[2017-05-30] MEDS ORDERED: SODIUM CHL 0.9% 50ML MIN-BAG+ 50 ML IVPB ONE (15:01)
[2017-05-30] MEDS ORDERED: DEXAMETHASONE INJ 2 MG, SODIUM CHLORIDE 0.9% NEB 3 ML NEB ONE ×2 (16:44)
[2017-05-30] MEDS ORDERED: MAGNESIUM SULFATE PREMIX 2GM 2 GM in PREMIX BAG 1 BAG IVPB ONE (16:44)
[2017-05-30] MEDS: ALPRAZolam 0.25 MG TAB PO PRN ×2 (17:13→22:11)
[2017-05-30] MEDS: AZITHROMYCIN 250 MG TAB PO SCH (17:14)
[2017-05-30] MEDS ORDERED: MAGNESIUM SULFATE PREMIX 2GM 50 ML IVPB ONE (18:09)
--- NOTE | 2017-05-30 18:43 | PN ---
DATE: 05/30/17 SUPERVISING PHYSICIAN: See Grover M.D. SUBJECTIVE: The patient continues to be significantly short of breath. She was actually able to take a shower but this resulted in severe dyspnea. She continues with obvious wheezing but notes that she has had some improvement prior to taking a shower. Her lactic acids are coming down slowly with IV fluids. She is remaining hemodynamically stable. OBJECTIVE: VITAL SIGNS: T max 98.6, pulse 92, blood pressure 158/78, respirations 20, satting 95% on room air. I's and O's show a positive balance of 510 with 2110 in, 1600 out. Weight is 117.0 kg. CHEST: Diffuse wheezing throughout but somewhat better breath sounds are noted towards the bases compared to yesterday. She remains with some coarse sounds towards bilateral bases. HEART: Regular rate and rhythm. ABDOMEN: Soft, non-tender. Obese. Positive bowel sounds. EXTREMITIES: No clubbing, cyanosis or edema. NEUROLOGIC : She is alert and oriented times three. LABORATORY: White count has improved down to 16,300 with hemoglobin 13.6, hematocrit 41.4, platelet count 325,000. Differential continues to show a left shift with no bands today. Chemistries show normal electrolytes with potassium 4.5, glucoses are elevated between 225 and 337. Initial lactic acid was 5.4, after initiation of treatment it is down to 3.1. Urinalysis showed just 500 glucose with 1+ bacteria. Otherwise within normal limits. MICROBIOLOGY: Sputum culture showed normal ant at 24 hours. Blood cultures remain negative. Group A Strep cultures pending. Her Group A Strep was negative and again her Influenza test was positive for Influenza A by PCR. RADIOLOGY: Repeat chest x-ray today per radiology interpretation showed no acute pulmonary processes identified. ASSESSMENT: 1. Chronic bronchial asthma with an acute exacerbation having failed to respond to outpatient treatment plan with trigger likely from Influenza A with the patient having continued leukocytosis and a left shift along with an elevated lactic acid, but remaining hemodynamically stable and showing improvement with initiation of parenteral antibiotics, Tamiflu and IV fluids. 2. Hyperglycemia with elevated hemoglobin A1c with no history of being diabetic with glucoses being elevated requiring initiation of sliding scale for insulin protocol. 3. Metabolic acidosis as noted with an elevated anion gap and a low CO2 secondary to increased lactic acid production likely from ongoing infectious process due to Influenza A and a decreased oxygenation level from the exacerbation of asthma, although showing improvement with the anion gap today showing to be normal but persistent elevated lactic acid. 4. History of seasonal allergies. 5. Chronic back pain with previous surgery to lumbar region. PLAN: The patient is showing slow response to treatment. Will continue with Solu-Medrol 80 mg every 6 hours and deescalate dosing as soon as the patient shows a decent response to treatment. She noted that in the past she has had issues with this and has been intubated due to severe reactive airway disease. Will continue with IV fluids to treat the underlying metabolic acidosis that has shown good improvement. Will repeat lactic acids until they are normalized to ensure that she is not making an acute decline. She is somewhat anxious and is unable to sleep with the steroids, and I told her we would provide her with Xanax p.r.n. to assist with anxiety. I will go ahead and do another Decadron treatment and 2 mg of IV magnesium. She notes that she is doing much better with the CPT. Will continue with this antibiotic coverage. Will plan to reevaluate with laboratory studies in the morning and repeat chest film. Until then, will continue to monitor and treat appropriately. Anticipation of discharging the next [address] Mcdonnell was available for consultation. [id number] [facility]
[2017-05-30] MEDS ORDERED: DEXAMETHASONE INJ 4 MG/ML VIAL ONE (20:55)
[2017-05-30] MEDS ORDERED: INSULIN DETEMIR 100 UNITS/ML PEN SUBCU SCH (21:11)
[2017-05-30] MEDS: cefTRIAXone SODIUM 1 GM in SODIUM CHL 0.9% 50ML MIN-BAG+ 50 ML IVPB SCH (21:22)
[2017-05-30] MEDS: ENOXAPARIN SODIUM 40 MG/0.4 ML SYG SUBCU SCH (21:22)
[2017-05-30] MEDS: TEMAZEPAM 15 MG CAP PO PRN (22:11)
[2017-05-31] MEDS: methylPREDNISolone SODIUM SUC 125 MG/2 ML VIAL IV SCH ×4 (00:05→17:41)
[2017-05-31] MEDS: SODIUM CHLORIDE 0.9% (FLUSH) 10 ML SYG IV PRN ×3 (00:06→21:18)
[2017-05-31] MEDS: ALBUTEROL SULFATE 2.5 MG/3 ML VIAL NEB PRN (05:44)
[2017-05-31] MEDS: KCL 20 MEQ/NS 1,000 ML IVS PRN ×2 (06:13→13:56)
[2017-05-31] MEDS: IPRATROPIUM/ALBUTEROL 3 ML VIAL INH SCH ×4 (07:07→20:19)
[2017-05-31] MEDS: INSULIN LISPRO 100 UNITS/ML PEN SUBCU SCH ×7 (07:13→21:15)
[2017-05-31] MEDS: OSELTAMIVIR 75 MG CAP PO SCH ×2 (08:02→21:17)
[2017-05-31] MEDS: guaiFENesin ER TAB 600 MG TAB PO SCH ×2 (08:44→21:16)
[2017-05-31] MEDS: INSULIN DETEMIR 100 UNITS/ML PEN SUBCU SCH ×2 (11:37→21:15)
[2017-05-31] MEDS ORDERED: cloNIDine HCL 0.1 MG TAB ONE (14:12)
[2017-05-31] MEDS ORDERED: cloNIDine HCL 0.1 MG TAB PO ONE (14:20)
[2017-05-31] MEDS ORDERED: glyBURIDE 5 MG TAB PO ONE (14:24)
[2017-05-31] MEDS: LISINOPRIL 10 MG TAB PO SCH (14:43)
[2017-05-31] MEDS: ALPRAZolam 0.25 MG TAB PO PRN (14:47)
[2017-05-31] MEDS: AZITHROMYCIN 250 MG TAB PO SCH (17:40)
--- NOTE | 2017-05-31 18:07 | PN ---
DATE: 05/31/17 SUPERVISING PHYSICIAN: See Grover M.D. SUBJECTIVE: The patient today has shown some improvement compared to admission. She is no longer showing any distress and is starting to respond to the corticosteroids. Her lactic acid has nearly normalized with aggressive fluid management. She continues with good output. She remains afebrile without any other complications such as diarrhea, nausea or vomiting. OBJECTIVE: VITAL SIGNS: Temperature 98.5, pulse 95, blood pressure 139/86, respiratory rate 18, satting 96% on room air. I's and O's show a negative balance of 460 with 4440 in, 4900 out. Weight is 119.0 kg. CHEST: Lung sounds have improved with good aeration throughout compared to admission with still some notable rhonchi more so on the left than the right with an expiratory wheeze. HEART: Regular rate and rhythm. ABDOMEN: Obese but soft, non-tender. Positive bowel sounds. EXTREMITIES: No clubbing, cyanosis or edema. NEUROLOGIC : She is alert and oriented times three. LABORATORY: White count remains elevated at 16,400 with hemoglobin 12.8, hematocrit 39.2, platelet count 315,000. Differential shows a continued left shift but no bands. Chemistries show normal electrolytes with potassium 4.1, BUN 17, creatinine 0.67. Blood sugars are still quite elevated between 254 and 342. Lactic acid last night at 9:00 was 3.1, this morning it was down to 2.3. Calcium 8.7. MICROBIOLOGY: Sputum culture final results show normal ant. Blood cultures remain negative after 24 hours. Group A Streptococcus culture showed no Group A isolated in 24 hours. RADIOLOGY: Will repeat a chest x-ray in the morning. ASSESSMENT: 1. Chronic bronchial asthma with an acute exacerbation having failed to respond to outpatient treatment plan with trigger likely from Influenza A with the patient having continued leukocytosis and a left shift with lactic acid slowly returning to baseline showing slow clinical improvement with initiation of antibiotics parenterally, Tamiflu and IV fluids. 2. Hyperglycemia with elevated hemoglobin A1c with no history of being diabetic with glucoses being elevated secondary to glucocorticosteroids requiring initiation of sliding scale. 3. Metabolic acidosis as noted on initial laboratory studies with an elevated anion gap and a low CO2 secondary to increased lactic acid production evidenced by the high lactate levels noted on lab studies. Underlying etiology more likely is a decreased oxygenation level to the tissues versus questionable underlying infection with the patient having now normalized her anion gap and returning her lactic acid to baseline status. 4. History of seasonal allergies. 5. Chronic back pain with previous surgery to lumbar region. PLAN: Will plan to saline lock the patient today as she has been adequately rehydrated and has shown good response to that treatment with her lactic acid closing in to normal levels. Considering that she continues to show very minimal clinical improvement, will continue with high dose steroids and aggressive pulmonary hygiene with DuoNeb treatments. She will be started on some Glyburide for better control of her blood sugars as well as she has been started on Levemir 15 mg b.i.d. while she is on steroid treatments. Hopefully be able to taper her steroids starting tomorrow after clinical reevaluation with anticipation of hopefully being able to go to p.o. regimen by Saturday and maybe discharging at that time. Until discharge, will continue to monitor the patient closely and treat appropriately. Dr. Mcdonnell was available for consultation. #[id number] [facility]
[2017-05-31] MEDS ORDERED: SODIUM CHL 0.9% 50ML MIN-BAG+ 50 ML IVPB ONE (19:59)
[2017-05-31] MEDS ORDERED: cefTRIAXone SODIUM 1 GM VIAL ONE (20:00)
[2017-05-31] MEDS ORDERED: INSULIN DETEMIR 100 UNITS/ML PEN SUBCU SCH (21:00)
[2017-05-31] MEDS: TEMAZEPAM 15 MG CAP PO PRN (21:16)
[2017-05-31] MEDS: ENOXAPARIN SODIUM 40 MG/0.4 ML SYG SUBCU SCH (21:16)
[2017-05-31] MEDS: cefTRIAXone SODIUM 1 GM in SODIUM CHL 0.9% 50ML MIN-BAG+ 50 ML IVPB SCH (21:17)
[2017-06-01] MEDS ORDERED: methylPREDNISolone SODIUM SUC 40 MG/ML VIAL IV SCH ×2 (06:00→08:30)
--- NOTE | 2017-06-01 06:34 | RAD ---
Procedure: XR CHEST 2 VIEWS Exam Date: 06/01/2017 Ordering Provider: Nicola Yung NP Clinical Indication: bronchitis, pos flu Comparison: 05/30/2017 Findings: Cardiomediastinal silhouette: Within normal limits Pulmonary vasculature : Unremarkable Aortic contour: Unremarkable Focal lung consolidation: None Pleural effusion: None Pneumothorax: None Bones and soft tissues: Nonacute Impression: 1. No acute abnormalities in the chest. Electronically signed by: Miguel Angel Walker MD 06/01/2017 6:33 AM FINISHING INSPECTOR
[2017-06-01] MEDS: IPRATROPIUM/ALBUTEROL 3 ML VIAL INH SCH ×5 (07:21→20:10)
[2017-06-01] MEDS: INSULIN LISPRO 100 UNITS/ML PEN SUBCU SCH ×7 (07:25→21:26)
[2017-06-01] MEDS: BIFIDOBACTERIUM INFANTIS 4 MG CAP PO SCH (08:13)
[2017-06-01] MEDS: LISINOPRIL 10 MG TAB PO SCH (08:13)
[2017-06-01] MEDS: OSELTAMIVIR 75 MG CAP PO SCH ×2 (08:13→20:45)
[2017-06-01] MEDS: guaiFENesin ER TAB 600 MG TAB PO SCH ×2 (08:13→20:45)
[2017-06-01] MEDS: INSULIN DETEMIR 100 UNITS/ML PEN SUBCU SCH ×2 (08:24→21:27)
[2017-06-01] MEDS ORDERED: glyBURIDE 5 MG TAB PO SCH (11:30)
[2017-06-01] MEDS ORDERED: DEXAMETHASONE INJ 1 MG, SODIUM CHLORIDE 0.9% NEB 3 ML NEB ONE ×2 (11:49)
[2017-06-01] MEDS ORDERED: DEXAMETHASONE INJ 4 MG/ML VIAL ONE ×2 (12:00→19:59)
[2017-06-01] MEDS ORDERED: SODIUM CHLORIDE 0.9% NEB 3 ML VIAL ONE (12:00)
--- NOTE | 2017-06-01 13:00 | PN ---
DATE: 06/01/17 SUBJECTIVE: The patient is still quite dyspneic and in some ways she has increased secretions today. The possibility of progression of the reversible airway disease is noted, but hopefully she has increased secretion production because of the ongoing treatment course that she is on. She is fully awake and alert. She becomes quite dyspneic when she walks without oxygen to the restroom and back. She will need to have ambulation studies to assist with ongoing evaluation. Her diabetes shows elevated glucose levels because of the large doses of corticosteroids which are being significantly tapered and decreased today. OBJECTIVE: See vitals. LUNGS: Have some expiratory slowing as well as rhonchi bilaterally but primarily of an upper airway secretion problems. She appreciates the percussion and will need to be more careful and being able to reverse Trendelenburg and put the head down while receiving the percussion. LABORATORY: Glucose 227 this morning. She is still on the twice daily Levemir to which is added Glyburide which she will be able to continue when she eventually gets home as the steroids are tapered and the sugar hopefully will become under less stimulus to be elevated. Electrolytes and kidney functions are good. White count is 16,800 on fairly high doses of the corticosteroid Solu-Medrol. Urinalysis shows glycosuria. Cultures of sputum, blood and throat are negative. RADIOLOGY: Chest x-ray this morning shows no acute cardiopulmonary findings. ASSESSMENT: 1. Chronic bronchial asthma with an acute exacerbation having failed to respond to outpatient treatment plan with trigger likely from Influenza A with the patient having continued leukocytosis and a left shift with lactic acid slowly returning to baseline showing slow clinical improvement with initiation of antibiotics parenterally, Tamiflu and IV fluids. 2. Hyperglycemia with elevated hemoglobin A1c with no history of being diabetic with glucoses being elevated secondary to glucocorticosteroids requiring initiation of sliding scale. 3. Metabolic acidosis as noted on initial laboratory studies with an elevated anion gap and a low CO2 secondary to increased lactic acid production evidenced by the high lactate levels noted on lab studies. Underlying etiology more likely is a decreased oxygenation level to the tissues versus questionable underlying infection with the patient having now normalized her anion gap and returning her lactic acid to baseline status. 4. History of seasonal allergies. 5. Chronic back pain with previous surgery to lumbar region. PLAN: Will add Mucinex to help thin some of the secretions. Continue with medication nebulizers with saline moisturizing. Add Decadron twice to her inhaled med nebs today. Try an ambulation study. Decrease Solu-Medrol to t.i.d. and then to p.o. starting in the morning. Close followup necessary and increase activity level and clear secretions with head down while receiving the percussion treatments. #[id number] [facility]
[2017-06-01] MEDS: methylPREDNISolone SODIUM SUC 40 MG/ML VIAL IV SCH (16:55)
[2017-06-01] MEDS: glyBURIDE 5 MG TAB PO SCH (17:01)
[2017-06-01] MEDS: AZITHROMYCIN 250 MG TAB PO SCH (17:01)
[2017-06-01] MEDS: IV SET AND CAP CHANGE INJ INJ SCH (17:02)
[2017-06-01] MEDS: DEXAMETHASONE INJ 1 MG, SODIUM CHLORIDE 0.9% NEB 3 ML NEB SCH ×2 (20:10)
[2017-06-01] MEDS ORDERED: cefTRIAXone SODIUM 1 GM VIAL ONE (20:29)
[2017-06-01] MEDS ORDERED: SODIUM CHL 0.9% 50ML MIN-BAG+ 50 ML IVPB ONE (20:29)
[2017-06-01] MEDS: cefTRIAXone SODIUM 1 GM in SODIUM CHL 0.9% 50ML MIN-BAG+ 50 ML IVPB SCH (20:45)
[2017-06-01] MEDS: ENOXAPARIN SODIUM 40 MG/0.4 ML SYG SUBCU SCH (20:45)
[2017-06-01] MEDS: TEMAZEPAM 15 MG CAP PO PRN (21:25)
[2017-06-01] MEDS: ALPRAZolam 0.25 MG TAB PO PRN (21:25)
[2017-06-01] MEDS: NYSTATIN SUSPENSION 5 ML UD MT SCH (21:26)
[2017-06-02] MEDS: methylPREDNISolone SODIUM SUC 40 MG/ML VIAL IV SCH (00:09)
[2017-06-02] MEDS ORDERED: predniSONE 10 MG TAB ONE (06:31)
[2017-06-02] MEDS: INSULIN LISPRO 100 UNITS/ML PEN SUBCU SCH ×7 (07:44→21:30)
[2017-06-02] MEDS: glyBURIDE 5 MG TAB PO SCH ×2 (07:47→15:33)
[2017-06-02] MEDS: guaiFENesin ER TAB 600 MG TAB PO SCH ×2 (08:48→21:27)
[2017-06-02] MEDS: NYSTATIN SUSPENSION 5 ML UD MT SCH ×4 (08:48→21:27)
[2017-06-02] MEDS: predniSONE 10 MG TAB PO SCH (08:48)
[2017-06-02] MEDS: BIFIDOBACTERIUM INFANTIS 4 MG CAP PO SCH (08:48)
[2017-06-02] MEDS: OSELTAMIVIR 75 MG CAP PO SCH ×2 (08:48→21:27)
[2017-06-02] MEDS: INSULIN DETEMIR 100 UNITS/ML PEN SUBCU SCH (08:49)
[2017-06-02] MEDS: LISINOPRIL 10 MG TAB PO SCH (08:50)
[2017-06-02] MEDS: IPRATROPIUM/ALBUTEROL 3 ML VIAL INH SCH ×4 (08:55→20:45)
[2017-06-02] MEDS ORDERED: DEXAMETHASONE INJ 4 MG/ML VIAL ONE ×2 (12:27→20:56)
[2017-06-02] MEDS ORDERED: SODIUM CHLORIDE 0.9% NEB 3 ML VIAL ONE (12:27)
[2017-06-02] MEDS: DEXAMETHASONE INJ 1 MG, SODIUM CHLORIDE 0.9% NEB 3 ML NEB SCH ×4 (12:43→20:45)
[2017-06-02] MEDS: ASCORBIC ACID 500 MG TAB PO SCH (15:33)
[2017-06-02] MEDS: ALPRAZolam 0.25 MG TAB PO PRN (15:33)
--- NOTE | 2017-06-02 15:45 | PN ---
DATE: 06/02/17 SUBJECTIVE: The patient has just completed ambulation in the hallways. She has mask and gown as she walks. She is still having an occasional cough and encouraged to cough into some material to help minimize the spread of droplets. She tolerated the walk fairly well, but was a little nauseated when she returned. Pulse oximetry dropped to about 95. Even though she was dyspneic, there was no desaturation otherwise noted. This was on room air. Her appetite is better. OBJECTIVE: Afebrile, blood pressure 144/85, respirations 20, pulse oximetry 96 % on room air. Weight 119.5 kilos. GENERAL: The patient is awake and alert. Her is also present during the interview. She states that she feels better this afternoon than she has felt since she has been in the hospital. LUNGS: Still have an occasional rhonchi on the left more than the right which clear with deep inspirations. HEART: Tones regular. ABDOMEN: Obese yet soft. She very much wishes to lose weight. Diabetic management has involved Levemir 15 units twice a day plus sliding scale which is now decreased back to 10 units subcue daily beginning tomorrow morning. Her Glyburide is increased from 2.5 mg b.i.d. to 5 mg every AM. Of note is that her hemoglobin A1c was elevated at 7.3. Her sugars have run in the upper 200s and 300s until this morning it was 136 and down to 93 prior to lunch. LABORATORY: Cultures of sputum, blood and throat are negative while Influenza A was positive. RADIOLOGY: Chest x-ray shows no acute findings from yesterday. ASSESSMENT: 1. Chronic bronchial asthma with an acute exacerbation having failed to respond to outpatient treatment plan with trigger likely from Influenza A with the patient having continued leukocytosis and a left shift with lactic acid slowly returning to baseline showing slow clinical improvement with initiation of antibiotics parenterally, Tamiflu and IV fluids. 2. Hyperglycemia with elevated hemoglobin A1c with no history of being diabetic with glucoses being elevated secondary to glucocorticosteroids requiring initiation of sliding scale. 3. Metabolic acidosis as noted on initial laboratory studies with an elevated anion gap and a low CO2 secondary to increased lactic acid production evidenced by the high lactate levels noted on lab studies. Underlying etiology more likely is a decreased oxygenation level to the tissues versus questionable underlying infection with the patient having now normalized her anion gap and returning her lactic acid to baseline status. 4. History of seasonal allergies. 5. Chronic back pain with previous surgery to lumbar region. PLAN: Hopefully be able to evaluate in the morning the elevated white count as well as sugar as we make plans for diabetic management when she goes home. She is encouraged to followup with either of her doctors being Dr. Carroll or Dr. Sosa. Hopefully they will be able to refer her eventually to a pulmonology specialist to continue with Pulmonary Function Testing and to maximize the home maintenance program for the reversible airway disease that the patient presents with. Anticipate discharge to outpatient management in the morning with followup in the clinic later in the week. #[id number] MTDD
[2017-06-02] MEDS: AZITHROMYCIN 250 MG TAB PO SCH (17:34)
[2017-06-02] MEDS ORDERED: cefTRIAXone SODIUM 1 GM VIAL IM ONE (21:00)
[2017-06-02] MEDS ORDERED: LIDOCAINE 1% 10 ML VIAL INJ ONE (21:00)
[2017-06-02] MEDS: ENOXAPARIN SODIUM 40 MG/0.4 ML SYG SUBCU SCH (21:27)
[2017-06-02] MEDS: TEMAZEPAM 15 MG CAP PO PRN (21:29)
[2017-06-03] MEDS: INSULIN LISPRO 100 UNITS/ML PEN SUBCU SCH ×2 (07:05→07:06)
[2017-06-03] MEDS: glyBURIDE 5 MG TAB PO SCH (07:11)
[2017-06-03] MEDS: LISINOPRIL 10 MG TAB PO SCH (08:04)
[2017-06-03] MEDS: ASCORBIC ACID 500 MG TAB PO SCH (08:04)
[2017-06-03] MEDS: predniSONE 10 MG TAB PO SCH (08:05)
[2017-06-03] MEDS: BIFIDOBACTERIUM INFANTIS 4 MG CAP PO SCH (08:05)
[2017-06-03] MEDS: OSELTAMIVIR 75 MG CAP PO SCH (08:05)
[2017-06-03] MEDS: guaiFENesin ER TAB 600 MG TAB PO SCH (08:05)
[2017-06-03] MEDS: NYSTATIN SUSPENSION 5 ML UD MT SCH (08:16)
[2017-06-03] MEDS: IPRATROPIUM/ALBUTEROL 3 ML VIAL INH SCH (08:30)
[2017-06-03] MEDS: DEXAMETHASONE INJ 1 MG, SODIUM CHLORIDE 0.9% NEB 3 ML NEB SCH ×2 (08:30)
[2017-06-03] MEDS ORDERED: DEXAMETHASONE INJ 4 MG/ML VIAL ONE (08:48)
[2017-06-03] MEDS ORDERED: INSULIN DETEMIR 100 UNITS/ML PEN SUBCU SCH (09:00)
[2017-06-03 10:33] VITALS: BP 127/84; TEMP 98.1; O2SAT 96
--- NOTE | 2017-06-03 12:03 | DS ---
DISCHARGE DIAGNOSIS: 1. Chronic bronchial asthma with reversible airway disease with an acute exacerbation, having failed outpatient therapy, probably triggered by influenza A infection. 2. Acute influenza A, bronchitis and upper respiratory infection requiring Tamiflu treatment as well as hydration and antibiotics to be covered because of significant lactic acidosis and leukocytosis. 3. Hyperglycemia with elevated hemoglobin A1c, suggesting a tendency towards diabetes mellitus, not present before, and aggravated by corticosteroid administration, controlled in the hospital with sliding scale Humalog insulin as well as some Levemir insulin which was cut back and continued on glyburide for home use and showing some improvement. 4. Significant metabolic acidosis with elevated anion gap and a low CO2 with lactic acid positive and very elevated. This required fluid hydration and support and treatment of the underlying significant infectious condition. 5. History of seasonal allergies. 7. History of chronic back pain with previous surgery to lumbar spine. 8. Mild hypokalemia. 9. Oral thrush. HISTORY OF PRESENT ILLNESS: This 51-year-old white female is admitted to the hospital because of significant shortness of breath worsening even though treatment had been initiated with a Z-Rudy, prednisone and albuterol. She came to the Emergency Room because of worsening symptoms and was admitted to the hospital because of significant leukocytosis, very elevated lactic acidosis, evidence of hyperventilation. She required bronchodilation treatment as well as anti-inflammatory and pulmonary hygiene with postural percussion and drainage to assist with her underlying significant infection. She has had a history of asthma in the past, but has not been on significant outpatient treatment as of yet which will be continued as she goes home. LABORATORY: Initial white count was 20,000 with 79% neutrophils with it decreasing to 12,000 even being on corticosteroids at a reduced dose and only 68 % neutrophils. Hemoglobin stable at 13.3. Chemistries showed potassium decreasing from 4.5 to 3.3. CO2 increased from 15 to 28. BUN stable at 18, creatinine 0.72. Lactic acid decreased from 5.4 to 2.3. Hemoglobin A1c elevated at 7.3. Liver enzymes were otherwise within normal limits yet albumin was low at 3. Urinalysis showed glycosuria, 1+ bacteruria. Serum ketones were negative. Group A strep was negative as well. Cultures of blood, sputum and throat were negative. She was positive for influenza A infection. Chest x-ray showed no acute cardiopulmonary findings during the hospital stay. HOSPITAL COURSE: The patient was feeling much improved on the morning of discharge. She was able to ambulate and saturations dropped to about 95. Her was able to assist with her ambulation providing stability, which will continue at home. PLAN: The patient will have close followup with Dr. Sosa or Dr. Carroll in their clinics. She is to call the clinic tomorrow to make an appointment for later this week such as . At that time, suggest a fingerstick glucose to be obtained as a fasting specimen to assist with sugar control. See home medications and new medicines which are started. Stay active. Eat less and move more to assist with weight loss. Observe blood pressure and start treatment as indicated. Return if not improving. [facility][id number] [facility]
== END 2017-06-03 12:02 | disposition home or self-care (01) | DRG 193 ==
LOC: ER 15:11 → OBSVTOIN 16:56 → MS 16:56
PROVIDERS: ADMIT Nurse Practitioner Family; ATTEND Emergency Medicine
DX: J09.X2 Influenza due to identified novel influenza A virus with other respiratory manifestations (principal); A41.9 Sepsis, unspecified organism; E87.2 Acidosis; B37.0 Candidal stomatitis; J45.41 Moderate persistent asthma with (acute) exacerbation; Z68.41 Body mass index [BMI] 40.0-44.9, adult; J40 Bronchitis, not specified as acute or chronic; R73.9 Hyperglycemia, unspecified; J30.9 Allergic rhinitis, unspecified; G89.29 Other chronic pain; M54.9 Dorsalgia, unspecified; E87.6 Hypokalemia; F41.9 Anxiety disorder, unspecified; E66.9 Obesity, unspecified; Z79.51 Long term (current) use of inhaled steroids; Z79.52 Long term (current) use of systemic steroids; Z79.899 Other long term (current) drug therapy

== ENCOUNTER → 2017-08-09 | Outpatient (CLI) | payer OTHER ==
--- NOTE | 2017-08-10 09:45 | US ---
EXAM DESCRIPTION: Pelvis Transvaginal CLINICAL HISTORY: 52 years, Female, PELVIC PN COMPARISON: None. FINDINGS: Transvaginal pelvic ultrasound. The uterus measures 9.4 x 7.9 x 6.2 cm. Nabothian cysts are present in the cervix. Inhomogeneity of the anterior uterine wall may be multiple small fibroids. One fibroid is measured in the anterior left lateral aspect of the uterus is 2.7 x 2.4 x 2.7 cm. No intrauterine fluid collection. Endometrium measures 7.4 mm in maximal thickness. Right ovary measures 1.9 x 1 x 2 cm. Small follicles are identifiable in the visualized ovaries. Left ovary measures 1.9 x 1.7 x 2.1 cm. There is no adnexal mass or free fluid. No pathologic cystic or solid lesion of the ovaries. IMPRESSION: Fibroid uterus. Unremarkable sonographic appearance of the ovaries. Electronically signed by: Rodger Macedo MD 08/10/2017 9:44 AM PHOTOGRAMMETRIC TECH
== END ==
LOC: US 10:01
PROVIDERS: ATTEND Obstetrics & Gynecology
DX: R10.2 Pelvic and perineal pain (principal)

== ENCOUNTER → 2017-08-20 | Outpatient (CLI) | payer OTHER ==
--- NOTE | 2017-08-22 09:00 | MAM ---
EXAM DESCRIPTION: 3D Screening BILATERAL : Digital Mammography. CLINICAL HISTORY: 52 years Female ANNUAL SCREENING . No complaints. No family history breast cancer. Premenopausal. No HRT. COMPARISON: Baseline study at this facility. No prior reports available. TECHNIQUE: Bilateral CC and MLO projection full-field images, 3-D tomosynthesis digital mammographic technique. Also bilateral synthesized CC/ MLO full-field images. CAD not utilized. FINDINGS: The breast parenchymal density pattern is: Heterogeneously dense breast tissue, which may obscure small masses. No skin thickening or nipple retraction bilateral solitary microcalcifications and coarse calcifications. Microcalcifications are predominantly in the lateral breasts more right than left. Almost 2 x 1.5 cm mass with partially well-defined margins in the upper outer quadrant of the posterior third of the right breast. 3 cm from the lateral skin surface and approximately 13 cm from the nipple. Possibly an intramammary lymph node. Same density as the surrounding fibroglandular tissues. No focal, stellate mass or density, focal asymmetry , and no suspicious microcalcifications left breast. IMPRESSION: BI-RADS CATEGORY: 0 - INCOMPLETE- Need additional imaging evaluation. FOLLOW-UP: Recall for additional imaging: Bilateral 3-D tomosynthesis LM full-field images and 2-D LM and CC spot magnification images of the upper outer quadrant of the right breast. Targeted right breast ultrasound. Written communication concerning the IMPRESSION and Follow-up, will be mailed to the patient and referring health care provider. Electronically signed by: Barrett Castro MD 08/22/2017 8:57 AM CDT
== END ==
LOC: MAMMO 10:00
PROVIDERS: ATTEND General Practice
DX: Z12.31 Encounter for screening mammogram for malignant neoplasm of breast (principal)

== ENCOUNTER → 2017-11-13 | Outpatient (CLI) | payer OTHER ==
--- NOTE | 2017-11-13 14:20 | US ---
EXAM DESCRIPTION: Breast,Right: Ultrasound CLINICAL HISTORY: 52 yearsFemaleABNORMAL MAMMO COMPARISON: Digital 3-D tomosynthesis diagnostic RIGHT breast on this visit. 3-D [place] synthesis digital screening bilateral mammography 10/07/2017. TECHNIQUE: Transcutaneous scanning of the right breast utilizing two-dimensional and Doppler modes. Scanning performed by the code number stamper and Dr. Castro. FINDINGS: Scanning at the 900 clock position of the right breast, 11 cm-7 cm from the nipple. Mass A: Hypoechoic or anechoic mass with well-defined margins measuring 1.7 cm longest diameter with parallel orientation and posterior enhancing features. No abnormal vascularity. This is most likely a complicated cyst or fibroadenoma. Mass B: Slightly more medial and closer to the nipple is a hypoechoic nodule with mostly well-defined margins but minimal lobularity. 11 x 12 x 9 mm with predominantly posterior shadowing. Nonparallel orientation. Nonvascular. Mass C: More superficial and slightly medial is a well-defined hypoechoic object with echogenic well-defined margins and slight posterior enhancing features. Parallel orientation and nonvascular. Dimensions are 8.3 x 7.4 mm. Summary: 12 by 11 mm hypoechoic nodule, Mass B, with mostly well-defined margins but minimal nodularity and posterior shadowing features demonstrates a slight risk for malignancy. The other masses, A and C are most likely fibroadenomas or cysts. IMPRESSION: 1. BI-RADS CATEGORY: 4 - SUSPICIOUS. SUB - CATEGORY 4A: LOW SUSPICION FOR MALIGNANCY. 2. Please refer to bilateral 3-D tomosynthesis diagnostic mammographic examination and report on this visit. The FINDINGS and various follow-up plans were reviewed in person with the patient after the examination. Written communication explaining the IMPRESSION and FOLLOW-UP will be mailed to the patient and referring care provider. Electronically signed by: Barrett Castro MD 11/13/2017 2:18 PM CDT
--- NOTE | 2017-11-14 16:51 | MAM ---
EXAM DESCRIPTION: 3D Diagnostic, Bilateral: Digital Mammography CLINICAL HISTORY: 52 yearsFemaleABN MAMMO breast mass upper outer quadrant posterior third right breast.. COMPARISON: Bilateral screening 3-D tomosynthesis mammography 08/20/2017. Targeted right breast ultrasound following this examination. Report from prior examination also reviewed. TECHNIQUE: Bilateral LM projection full-field images, 3-D tomosynthesis digital mammographic technique. 2-D digital full-field right breast image and 2-D digital spot magnification upper outer quadrant right breast posterior third CC and LM projections. CAD utilized for 2-D images. FINDINGS: The breast parenchymal density pattern is: Heterogeneously dense breast tissue, which may obscure small masses. No skin thickening or nipple retraction partially defined mass in the upper outer quadrant of the right breast as seen previously but margins are not completely defined. Craniocaudal dimension 2.3 cm on the LM tomographic image. Similar density to the surrounding fibroglandular tissues. Smaller masses with partially defined borders anterior and lateral to the larger mass. Scattered solitary and grouped microcalcifications in the surrounding tissues. Ultrasound: Scanning at the 900 clock position of the right breast, 11 cm-7 cm from the nipple. Mass A: Hypoechoic or anechoic mass with well-defined margins measuring 1.7 cm longest diameter with parallel orientation and posterior enhancing features. No abnormal vascularity. This is most likely a complicated cyst or fibroadenoma. Mass B: Slightly more medial and closer to the nipple is a hypoechoic nodule with mostly well-defined margins but minimal lobularity. 11 x 12 x 9 mm with predominantly posterior shadowing. Nonparallel orientation. Nonvascular. Mass C: More superficial and slightly medial is a well-defined hypoechoic object with echogenic well-defined margins and slight posterior enhancing features. Parallel orientation and nonvascular. Dimensions are 8.3 x 7.4 mm. Summary: 12 x 11 mm hypoechoic nodule, Mass B, with mostly well-defined margins but minimal lobular margins and posterior shadowing features demonstrates a slight risk for malignancy. The other masses, A and C are most likely fibroadenomas or cysts. IMPRESSION: BI-RADS CATEGORY 4: SUSPICIOUS. SUB-CATEGORY 4A - LOW SUSPICION FOR MALIGNANCY. Surgical consultation and tissue diagnosis should be considered. The FINDINGS and follow-up plan were reviewed in person with the patient following the examination. Written communication explaining the IMPRESSION and follow-up will be mailed to the patient and referring care provider. CRITICAL COMMUNICATION: The critical value was discussed directly by phone with Dr. Sosa's nurse practitioner, Ms. Carrie Schneider NP at approximately 1502 hours, on 11/13/2017. Electronically signed by: Barrett Castro MD 11/14/2017 4:50 PM CDT
== END ==
LOC: MAMMO 09:00
PROVIDERS: ATTEND General Practice
DX: R92.8 Other abnormal and inconclusive findings on diagnostic imaging of breast (principal)
CPT/HCPCS: 76641; 77066; G0279

== ENCOUNTER 2019-03-11 06:05 | Day surgery (SDC) | payer OTHER ==
[2019-03-11] MEDS ORDERED: PROPOFOL 200 MG/20 ML VIAL IV ONE ×2 (06:06→07:27)
[2019-03-11] MEDS ORDERED: LACTATED RINGERS 1,000 ML ONE (06:12)
[2019-03-11] MEDS ORDERED: LIDOCAINE 1% 10 ML VIAL INJ ONE (07:27)
--- NOTE | 2019-03-11 09:46 | OP ---
DATE OF PROCEDURE: 03/11/19 PREOPERATIVE DIAGNOSIS: 1. Family history of colon cancer. 2. Bright red blood per rectum. 3. Change in bowel habits characterized by constipation. POSTOPERATIVE DIAGNOSIS: 1. Sigmoid diverticulosis with tight angulation after hysterectomy. 2. Internal hemorrhoids. PROCEDURE: 1. Colonoscopy to the ascending colon. SURGEON: Jl Perez MD. ANESTHESIA: MAC. PROCEDURE: Informed consent was obtained prior to sedation. The preprocedure cardiopulmonary assessment was satisfactory. The patient was placed in the left lateral decubitus position and was sedated. The tip of the Olympus colonoscope was inserted in the rectum and guided through the entire colon under direct visualization. The scope was advanced into the proximal ascending colon. The cecum was not visualized. The colonoscopy prep was good. Failure to access the cecum was related to a tight series of angulations in the sigmoid colon after hysterectomy. There is no pediatric colonoscope available in this facility. Slow withdrawal was started at this time. Sigmoid diverticula were identified with stricturing of the sigmoid and rectosigmoid at multiple levels likely due to hysterectomy. Retroflexion view of the anorectal area showed internal hemorrhoids, grade 2 to 3. The scope was withdrawn from the patient without further findings and the procedure was terminated. RECOMMENDATION: 1. Repeat colonoscopy with pediatric Olympus 190 colonoscope. 2. Metamucil once a day. 3. Consider hemorrhoidal banding. 4. Regular diet. 5. Regular activity. 6. Followup in GI clinic in 2 weeks. #[id number] MTDD
[2019-03-11 11:33] VITALS: BP 150/88; TEMP 97.7; O2SAT 99
== END 2019-03-11 11:00 | disposition home or self-care (01) ==
LOC: AMB 06:05
DX: R19.4 Change in bowel habit (principal); K62.5 Hemorrhage of anus and rectum; K57.30 Diverticulosis of large intestine without perforation or abscess without bleeding; K64.2 Third degree hemorrhoids; K59.01 Slow transit constipation; E66.01 Morbid (severe) obesity due to excess calories; Z80.0 Family history of malignant neoplasm of digestive organs; Z68.41 Body mass index [BMI] 40.0-44.9, adult; Z90.710 Acquired absence of both cervix and uterus; Z79.899 Other long term (current) drug therapy
CPT/HCPCS: 00811; 45378; J3490; J7120